=== PATIENT | female | born 1935 | race Two or more races ===

== ENCOUNTER 2017-12-01 11:26 | Outpatient (CLI) | payer OTHER | END 2017-12-01 12:11 | disposition home or self-care (01) | LOC: RAD 501 11:26 | DX: M51.9 Unspecified thoracic, thoracolumbar and lumbosacral intervertebral disc disorder (principal); M16.9 Osteoarthritis of hip, unspecified ==

== ENCOUNTER 2018-09-13 15:56 | Emergency (ER) | payer OTHER ==
[~2018-09-13] VITALS: Ht 124.5 cm; Wt 44.9 kg
[2018-09-13] MEDS ORDERED: SIMVASTATIN40 MG (16:38)
[2018-09-13] MEDS ORDERED: SPIRONOLACTONE25 MG (16:38)
[2018-09-13] MEDS ORDERED: ACID REDUCER75 MG PO (16:38)
[2018-09-13] MEDS ORDERED: ASA81 MG (16:38)
[2018-09-13] MEDS ORDERED: COZAAR50 MG (16:39)
[2018-09-13] MEDS ORDERED: CARVEDILOL6.25 MG (16:39)
[2018-09-13] MEDS ORDERED: LASIX20 MG (16:39)
== END 2018-09-13 18:25 | disposition home or self-care (01) ==
LOC: ER 15:56
DX: B02.9 Zoster without complications (principal)